=== PATIENT | female | born 1975 | race Caucasian/White ===

== ENCOUNTER 2019-05-19 23:58 | Emergency (ER) | payer SELFPAY ==
[~2019-05-19] VITALS: Ht 162.6 cm; Wt 57.0 kg
[2019-05-20] MEDS ORDERED: LIDOCAINE HCL/PF 1% 10 MG/ML 5ML VIAL IJ ONE (02:45)
[2019-05-20] MEDS ORDERED: BACITRACIN ZINC OINT UDPKT TOP ONE (02:45)
[2019-05-20 03:45] VITALS: BP 123/70
== END 2019-05-20 03:45 | disposition home or self-care (01) ==
LOC: ER 23:58
DX: S61.412A Laceration without foreign body of left hand, initial encounter (principal); F17.200 Nicotine dependence, unspecified, uncomplicated; W26.0XXA Contact with knife, initial encounter; Y93.G1 Activity, food preparation and clean up; Y92.9 Unspecified place or not applicable
CPT/HCPCS: 12001; 99283